=== PATIENT | female | born 1995 | race Caucasian/White ===

== ENCOUNTER 2016-10-08 17:17 | Inpatient (IN) | payer OTHER ==
--- NOTE | ~2016-10-08 | PN ---
Unit #: [id number] #: [id number] Patient: JOSE MANUEL FORBES [id number] [facility] [address] [place] [address] [id number] I MR#: [id number] NAME: JOSE MANUEL FORBES ROOM: [facility] Age: 21 Sex: F Admission Date: 10/08/2016 : 1995 Attending Physician: Morgan Elizabeth M.D. Admitting Physician: Morgan Elizabeth M.D. Primary Care Physician: Primary Care Physician Luh KWNO PROGRESS NOTES DATE 10/10/2016 DISCUSSION The patient complains of feeling very tired today, and this has interfered with her participation within the therapeutic milieu. I gently confronted her regarding her need to increase her participation within the therapeutic milieu. She continues to endorse positive suicidal ideation during today's interview. Dictated by... Morgan Elizabeth M.D. CB/jen TD: 10/10/2016 12:47 JOB #: [id number] [facility] PROGRESS NOTES Page 1 of 1 X Morgan Elizabeth MD PROGRESS NOTE
--- NOTE | ~2016-10-08 | HP ---
Unit #: [id number] #: [id number] Patient: NEL FORBES [id number] [place] [address] [id number] I MR#: [id number] NAME: NEL FORBES ROOM: [facility] Age: 21 Sex: F Admission Date: 10/08/2016 : 1995 Attending Physician: Morgan Elizabeth M.D. Admitting Physician: Morgan Elizabeth M.D. Primary Care Physician: Primary Care Physician No HISTORY AND PHYSICAL HISTORY OF PRESENT ILLNESS Nel is a 21 year old admitted to [address] [place] [address] with depression. PAST MEDICAL HISTORY Nothing significant. PAST SURGICAL HISTORY Nothing reported. ALLERGIES Penicillin (rash). SOCIAL HISTORY She denies cigarettes, alcohol and illicit drug use. FAMILY HISTORY Medically noncontributory. REVIEW OF SYSTEMS CONSTITUTIONAL: No fever or chills. HEENT: Denies any sore throat, ear pain or runny nose. CARDIOVASCULAR: Denies chest pain, irregular heart rhythm or palpitations. CHEST: Denies shortness of breath or cough. No hemoptysis. GASTROINTESTINAL: Denies nausea, vomiting, diarrhea or chronic constipation. ENDOCRINE: Denies history of increased thirst or urination. No recent significant weight loss or gain. GENITOURINARY: Denies dysuria, frequency, or hematuria. SKIN: Denies any rashes. HEMATOLOGIC: Denies history of increased bleeding or bruising. MUSCULOSKELETAL: Denies any hot, swollen joints. No generalized muscle pain. NEUROLOGIC: Denies problems with vision or speech. No frequent, severe headaches. No numbness, tingling or weakness in any extremities. Denies loss of bladder or bowel control. CURRENT MEDICATIONS 1. Zoloft 150 mg daily. 2. Milk of Magnesia p.r.n. 3. Maalox p.r.n. 4. Tylenol p.r.n. PHYSICAL EXAMINATION Unit #: [id number] #: [id number] Patient: NEL FORBES GENERAL: Alert, well-nourished, in no apparent distress. VITAL SIGNS: Blood pressure 113/78, heart rate 88, respirations 16, temperature 98.6. WEIGHT: 145. HEIGHT: 5 feet 4 inches. SKIN: Warm and dry without rash or lesion. HEENT: Normocephalic. TMs not viewed. Oral and nasal passages clear. Conjunctivae clear. PERRLA. EOMs intact. NECK: Supple without lymphadenopathy or thyromegaly. HEART: Regular rate and rhythm without murmur. LUNGS: Clear. ABDOMEN: Soft, nontender. : Not done. EXTREMITIES: No evidence of cyanosis, clubbing or edema. Moves all without focal deficit. NEUROLOGICAL: Grossly within normal limits. Cranial Nerves: II: Visual kc are intact. III, IV AND : Extraocular movements are intact. Pupils are equal, round and reactive to light. V: Facial sensation is grossly normal. VII: Facial movements and expression are normal. VIII: Auditory acuity grossly intact. IX, X: Uvula is midline. Phonation is normal. XI: Patient shrugs shoulders and turns head normally. XII: Tongue protrudes in the midline. Sensory and Motor Function: Sensory and motor sensation is grossly normal. Motor: moves all extremities well. Coordination: Gait is normal. Deep Tendon Reflexes: Intact. IMPRESSION Psychiatric admission. RECOMMENDATIONS PSYCHIATRIC: Per psychiatrist. MEDICAL: See no contraindications to participate in facility's activities. MEDICAL PROGNOSIS Good. MEDICAL CONDITION Stable. Dictated by... Malissa Bahena P.A.-C. for Jim Zhu/michael TD: 10/09/2016 16:44 JOB #: [id number] Unit #: [id number] #: [id number] Patient: NEL FORBES HISTORY AND PHYSICAL Page 1 of 1 X Malissa Bahena HISTORY AND PHYSICAL
--- NOTE | ~2016-10-08 | PN ---
Unit #: [id number] #: [id number] Patient: JOSE MANUEL FORBES [id number] [facility] [address] [place] [address] [id number] I MR#: [id number] NAME: JOSE MANUEL FORBES ROOM: [facility] Age: 21 Sex: F Admission Date: 10/08/2016 : 1995 Attending Physician: Morgan Elizabeth M.D. Admitting Physician: Morgan Elizabeth M.D. Primary Care Physician: Primary Care Physician Luh KWON PROGRESS NOTES DATE 10/11/2016 DISCUSSION The patient is active within the therapeutic milieu. She continues to endorse positive suicidal ideation but seemed a bit brighter. I have spoken with her regarding realistic expectations of inpatient care, and I have also spoke with her today regarding my feeling that she will do well in the intensive outpatient program. Dictated by... Morgan Elizabeth M.D. CB/bzg TD: 10/13/2016 09:15 JOB #: [id number] [facility] PROGRESS NOTES Page 1 of 1 X Morgan Elizabeth MD PROGRESS NOTE
--- NOTE | ~2016-10-08 | DS ---
Unit #: [id number] #: [id number] Patient: JOSE MANUEL FORBES [id number] [facility] [address] [place] [address] [id number] I MR#: [id number] NAME: JOSE MANUEL FORBES [facility]OM[facility] Age: 21 Sex: F Admission Date: 10/08/2016 : 1995 Discharge Date: 10/12/2016 Attending Physician: Morgan Elizabeth M.D. Primary Care Physician: Primary Care Physician No DISCHARGE SUMMARY REASON FOR ADMISSION The patient is a 21-year-old single white female, admitted after she had voiced suicidal ideation while speaking with a therapist at [facility]. HOSPITAL COURSE The patient was admitted to the [facility] and placed on suicide precautions. She was continued on Zoloft with dosage increased to 150 mg daily. She tolerated the medication well and was active within therapeutic milieu. By 10/12/2016, the patient was in bright spirits and in agreement with the plan for followup through the auspices of the intensive outpatient program provided by this facility. As per her request, discharge was ordered. FINAL DIAGNOSIS Major depressive disorder, recurrent, moderate. DISPOSITION ON DISCHARGE The patient is discharged on the following medications; Zoloft 150 mg daily for depression. FOLLOWUP Followup will take place in the intensive outpatient program provided by this facility and through the auspices of [facility]. PROGNOSIS The patient's prognosis is considered fair. Dictated by... Morgan Elizabeth M.D. TERRIE/laurie TD: 10/12/2016 23:05 JOB #: [id number] Unit #: [id number] #: [id number] Patient: JOSE MANUEL FORBES DISCHARGE SUMMARY Page 1 of 1 X Morgan Elizabeth MD X DISCHARGE SUMMARY
--- NOTE | ~2016-10-08 | PA ---
Unit #: [id number] #: [id number] Patient: JOSE MANUEL FORBES [id number] [place] [address] [id number] I MR#: [id number] NAME: JOSE MANUEL FORBES ROOM: [facility] Age: 21 Sex: F Admission Date: 10/08/2016 : 1995 Date of Assessment: 10/09/2016 Attending Physician: Morgan Elizabeth M.D. Admitting Physician: Morgan Elizabeth M.D. Primary Care Physician: Primary Care Physician No PSYCHIATRIC ASSESSMENT IDENTIFYING INFORMATION The patient is a 21-year-old white female admitted with worsening depression. CHIEF COMPLAINT "My family believes me." INFORMANT(S) Patient, reliability is good. HISTORY OF PRESENT ILLNESS The patient is a 21-year-old single white female admitted on the recommendation of her [facility] therapist. The patient reported suicidal ideation while there with stated plan to overdose. The patient has no current history of inpatient treatment but has been treated as an outpatient through the auspices of [facility] for some time. She reports that she has been on Zoloft for approximately 6 months and reports that it initially "felt as though was doing something" but now feels recurrent depression. She complains of anergy, poor sleep, (1) __ depressed mood and anxiety. This patient reports that prominent stressor in her life is feelings of being bullied by her mother and grandmother neither of whom take her symptoms of depression "seriously." The patient denies prior suicide attempts or gestures. She denies use of any psychoactive substances. She lives with her mother and stepfather whom she describes as supportive. PAST PSYCHIATRIC HISTORY As above. PAST MEDICAL HISTORY Noncontributory. MEDICATIONS Zoloft. ALLERGIES Penicillin. FAMILY HISTORY Noncontributory. SOCIAL HISTORY The patient lives with her mother and stepfather. She is a high school Unit #: [id number] #: [id number] Patient: JOSE MANUEL FORBES graduate but is not presently employed. She reports no use of alcohol, tobacco, or street drugs. MENTAL STATUS EXAMINATION Examination at this time reveals the patient to be a well-developed, well-nourished white female appearing stated age. She is in no apparent physical distress at the time of examination. She is awake, alert and oriented in all spheres. Her mood is mildly dysphoric, her affect congruent. Speech is generally well-coherent. There are no gross deficits in memory or cognition noted. Intelligence is judged to be in the average range based on fund of knowledge. The patient is cooperative throughout the interview. She is currently endorsing positive suicidal ideation. She denies homicidal ideations. She denies any psychotic symptoms. Her judgment and insight appear to be reasonably intact. ASSETS AND LIABILITIES The patient's assets: Motivation for change. Liabilities: Difficult family situation. DIAGNOSTIC IMPRESSION Major depressive disorder, single episode, moderate. TREATMENT PLAN The patient remains hospitalized for safety and stabilization. Suicide precautions remain in place. We will increase Zoloft from 100 to 150 mg daily and transfer to the [address] [place] [address] unit will be undertaken. The patient will participate in appropriate order of milieu activities. ESTIMATED LENGTH OF STAY 3 to 5 days. Dictated by... Morgan Elizabeth M.D. TERRIE/jen TD: 10/09/2016 13:40 JOB #: [id number] PSYCHIATRIC ASSESSMENT Page 1 of 1 X Morgan Elizabeth MD X PSYCHIATRIC ASSESSMENT
[2016-10-09 09:53] LABS: BASOPHIL% 0.3 % (0-2.5); EOSINOPHIL# 0.2 X10e3 (0-0.7); HEMATOCRIT 41.5 % (35.0-45.0); HEMOGLOBIN 13.4 gm/dL (12.0-16.0); LYMPHOCYTE# 3.3 X10e3 (1.0-3.5); LYMPHOCYTE% 27.7 % (17.0-45.0); MEAN CELL VOLUME 84.9 FL (83-96); MEAN CORPUSCULAR HEMOGLOBIN 27.4 PG (28-34); MEAN CORPUSCULAR HGB CONC 32.3 g/dL (30-36); MEAN PLATELET VOLUME 9.5 FL (6.5-11.5); MONOCYTE% 8.6 % (3.0-12.0); NEUTROPHIL# 7.3 X10e3 (1.5-7.1); NEUTROPHIL% 61.4 % (40-75); PLATELET COUNT 228 X10e3 (140-420); RED BLOOD COUNT 4.89 X10e (3.90-5.30); RED CELL DISTRIBUTION WIDTH 13.5 % (11.0-15.5); WHITE BLOOD COUNT 11.9 X10e3 (4.0-10.5)
[2016-10-09 09:58] LABS: DIFF IND NO
[2016-10-09 10:30] LABS: ALBUMIN SERUM 4.1 g/dL (3.5-5.0); BILIRUBIN,TOTAL 0.7 mg/dL (0.2-2.0); BUN/CREATININE RATIO 13.33; CREATININE SERUM 0.6 mg/dL (0.6-1.4); GLOM FILT RATE Estimated 129.4 mL/min (>60); POTASSIUM 4.2 mmol/L (3.5-5.1); PROTEIN TOTAL SERUM 7.4 g/dL (6.0-8.3)
[2016-10-12 09:53] LABS: URINE APPEARANCE CLOUDY; URINE BILIRUBIN NEG (NEG); URINE BLOOD NEG (NEG); URINE COLOR YELLOW; URINE GLUCOSE NEG (NEG); URINE KETONE NEG (NEG); URINE LEUKOCYTE ESTERASE 1+ (NEG); URINE NITRATE NEG (NEG); URINE PH 7.5 (5-8); URINE PROTEIN NEG (NEG); URINE SPECIFIC GRAVITY 1.018 (1.003-1.035)
[2016-10-12 09:58] LABS: URBCS1 AUWI 0-2 /[HPF] (0-2); URINE BACTERIA AUWI 1+ (NEGATIVE); URINE SQUAMOUS EPITHELIAL CELL MOD /[HPF]
[2016-10-12 11:24] LABS: AMPHETAMINE NEG (NEG); BARBITURATES NEG (NEG); BENZODIAZEPINES NEG (NEG); COCAINE NEG (NEG); MARIJUANA NEG (NEG); OPIATES NEG (NEG); TRICYCLIC ANTIDEPRESSANTS NEG (NEG); U METHADONE NEG (NEG)
== END 2016-10-12 16:15 | disposition home or self-care (01) | DRG 885 ==
LOC: P2S 21:25 → P2L 21:25
PROVIDERS: Specialist
DX: F32.1 Major depressive disorder, single episode, moderate (principal); R45.851 Suicidal ideations; Z88.0 Allergy status to penicillin
CPT/HCPCS: 80053; 80307; 81003; 84703; 85025